=== PATIENT | female | born 1955 | race Caucasian/White ===

== ENCOUNTER 2018-10-14 05:13 | Day surgery (SDC) | payer BC ==
[~2018-10-14] VITALS: Ht 162.6 cm; Wt 83.6 kg
[2018-10-14] MEDS ORDERED: LIDOCAINE 1%-EPI 1:100K, 30ML ONE (06:05)
[2018-10-14] MEDS ORDERED: ROPIvacaine/PF 0.5%, 30 ML ONE (06:05)
[2018-10-14] MEDS ORDERED: LACTATED RINGERS 1,000 ML IV SCH (06:07)
[2018-10-14] MEDS ORDERED: SUMA50TA4 PO (06:10)
[2018-10-14] MEDS ORDERED: ENAL10TA PO (06:10)
[2018-10-14] MEDS ORDERED: DEXL60CA2 PO (06:10)
[2018-10-14] MEDS ORDERED: POTA20TA14 PO (06:10)
[2018-10-14] MEDS ORDERED: ASPI-496 PO (06:10)
[2018-10-14] MEDS ORDERED: ATEN50TA41 PO (06:21)
[2018-10-14 06:34] VITALS: BP 173/78
[2018-10-14] MEDS ORDERED: FENTANYL PF 100 MCG/2ML ONE ×2 (06:48→07:48)
[2018-10-14] MEDS ORDERED: MIDAZOLAM 1 MG/ML, 2ML ONE (06:48)
[2018-10-14] MEDS ORDERED: PROPOFOL 10 MG/ML, 20ML ONE (06:58)
[2018-10-14] MEDS ORDERED: CEFAZOLIN 1,000 MG ONE (06:58)
[2018-10-14] MEDS ORDERED: ONDANSETRON 2MG/ML, 2ML ONE (06:58)
[2018-10-14] MEDS ORDERED: SUCCINYLCHOLINE 20 MG/ML, 10ML ONE (06:58)
[2018-10-14] MEDS ORDERED: ROCURONIUM 10 MG/ML,10ML ONE (06:58)
[2018-10-14] MEDS ORDERED: DEXAMETHASONE 4 MG/ML, 1ML ONE (06:58)
[2018-10-14] MEDS ORDERED: hydrALAzine 20 MG/ML, 1ML IV PRN (07:30)
[2018-10-14] MEDS ORDERED: METOCLOPRAMIDE 5 MG/ML, 2ML IV PRN (07:30)
[2018-10-14] MEDS ORDERED: LABETALOL 5MG/ML, 20ML IV PRN (07:30)
[2018-10-14] MEDS ORDERED: MEPERIDINE/PF 25MG/0.5ML IVPush PRN (07:30)
[2018-10-14] MEDS ORDERED: OXYcodone 5 MG/5 ML ORAL.SOL UDC PO PRN (07:30)
[2018-10-14] MEDS ORDERED: ALBUTEROL SULFATE 2.5 MG/3 ML NPPB PRN (07:30)
[2018-10-14] MEDS ORDERED: PROMETHAZINE 25 MG/ML, 1ML IV PRN (07:30)
[2018-10-14] MEDS ORDERED: ONDANSETRON 2MG/ML, 2ML IVPush PRN (07:30)
[2018-10-14] MEDS ORDERED: KETOROLAC 30 MG/1 ML IV PRN (07:30)
[2018-10-14] MEDS ORDERED: HYDROmorphone 1 MG/ML, 1ML INJ IV PRN (07:30)
[2018-10-14] MEDS ORDERED: OXYcodone 5 MG/5 ML ORAL.SOL UDC ONE (07:48)
[2018-10-14] MEDS: FENTANYL PF 100 MCG/2ML IV PRN ×3 (07:50→08:13)
[2018-10-14] MEDS ORDERED: KETOROLAC 30 MG/1 ML ONE (07:52)
== END 2018-10-14 09:20 | disposition home or self-care (01) ==
LOC: OUT 05:13
PROVIDERS: ATTEND Orthopaedic Surgery
DX: S83.241A Other tear of medial meniscus, current injury, right knee, initial encounter (principal); S83.281A Other tear of lateral meniscus, current injury, right knee, initial encounter; M94.261 Chondromalacia, right knee; K21.9 Gastro-esophageal reflux disease without esophagitis; Z88.0 Allergy status to penicillin; X58.XXXA Exposure to other specified factors, initial encounter; Y93.89 Activity, other specified; Y92.89 Other specified places as the place of occurrence of the external cause; Y99.8 Other external cause status; Z72.89 Other problems related to lifestyle
CPT/HCPCS: 29880; 93005; J0330; J0690; J1100; J1885; J2250; J2405; J2704; J2795; J3010; J3490; J7120